=== PATIENT | male | born 1955 | race Caucasian/White ===

== ENCOUNTER 2020-05-26 15:44 | Inpatient (IN) | payer OTHER ==
[~2020-05-26] VITALS: Ht 185.4 cm; Wt 92.1 kg
[2020-05-26] MEDS ORDERED: QUET300T2 PO (16:00)
--- NOTE | 2020-05-26 16:15 | NUR ---
Patient has been medically cleared by Dr. Holman
--- NOTE | 2020-05-26 16:21 | NUR ---
Called Rudolph Jaime CHIEF TECHNICIAN [facility] to evaluate patient. No ETA given
--- NOTE | 2020-05-26 19:34 | NUR ---
Report given to SEAN Sutherland
[2020-05-26 20:00] VITALS: BP 133/85
[2020-05-26] MEDS ORDERED: MAG HYDROX/AL HYDROX/SIMETH 30 ML LIQUID UDC PO PRN (20:45)
[2020-05-26] MEDS ORDERED: LORAZEPAM 1 MG TABLET PO PRN (20:45)
[2020-05-26] MEDS ORDERED: BLOOD SUGAR DIAGNOSTIC 1 EACH STRIP VI ONE (20:45)
[2020-05-26] MEDS ORDERED: ACETAMINOPHEN 325 MG TABLET PO PRN (20:45)
[2020-05-26] MEDS ORDERED: MAGNESIUM HYDROXIDE 30 ML LIQUID UDC PO PRN (20:45)
[2020-05-26] MEDS: TEMAZEPAM 7.5 MG CAPSULE PO PRN (23:55)
--- NOTE | 2020-05-27 05:06 | NUR ---
Admit Note: 64 yr old male brought to [facility] from ER via wheel chair by ER staff. Pt admitted on a 5150 for Grave Disability under the care of Dr Harrell and Mary COTO. According to the 5150, Pt. was missing approx. 2 days then found by police in his his car confused, disorganized with no insight to current situation. Pt appears to reflect what is written on the Hold. Upon admission to the unit, VS stable, denies pain, and in no apparent physical distress. Pt. alert and oriented x3 however exhibits periods with confusion and declined physical assessment along with signing paperwork instead gave verbal consent. Patient Rights handbook and Advisement and Pt rights handbook given, unit rules explained, Pt verbalized understanding. Pt oriented to the unit, the phone, the restrooms, and his room. Q 15 minute rounding initiated for safety.
[2020-05-27 07:16] LABS: BILIRUBIN,TOTAL 1.6 mg/dL (0.2-1.0); CREATININE 0.9 mg/dL (0.6-1.3); POTASSIUM 3.3 mmol/L (3.5-5.1); TOTAL PROTEIN, SERUM 7.3 g/dL (6.4-8.2)
[2020-05-27 07:30] VITALS: BP 145/90
[2020-05-27 10:49] LABS: BASOPHILS # (AUTO) 0.1 K/uL (0.0-8.0); BASOPHILS % (AUTO) 0.8 % (0.0-2.0); EOSINOPHILS # (AUTO) 0.1 K/uL (0.0-0.7); EOSINOPHILS % (AUTO) 1.4 % (0.0-7.0); HEMATOCRIT 49.9 % (36.7-47.1); HEMOGLOBIN 17.1 g/dL (12.5-16.3); LYMPHOCYTES # (AUTO) 1.7 K/uL (20.0-40.0); LYMPHOCYTES % (AUTO) 19.2 % (20.5-51.5); MEAN CORPUSCULAR HEMOGLOBIN 30.2 uug (23.8-33.4); MEAN CORPUSCULAR HGB CONC 34 g/dL (32.5-36.3); MEAN CORPUSCULAR VOLUME 87.9 fL (73.0-96.2); MONOCYTES # (AUTO) 1.3 K/uL (2.0-10.0); MONOCYTES % (AUTO) 14.9 % (0.0-11.0); NEUTROPHILS # (AUTO) 5.7 K/uL (1.8-8.9); NEUTROPHILS % (AUTO) 63.7 % (38.5-71.5); PLATELET COUNT (AUTO) 269 K/uL (152-348); RED BLOOD CELL COUNT(AUTO) 5.67 MIL/uL (4.06-5.63); WHITE BLOOD COUNT (AUTO) 8.9 K/uL (3.6-10.2)
[2020-05-27] MEDS ORDERED: POTASSIUM CHLORIDE 20 MEQ TAB.PRT.SR PO ONE (12:00)
[2020-05-27 16:02] VITALS: BP 150/87
[2020-05-27] MEDS ORDERED: BLOOD SUGAR DIAGNOSTIC 1 EACH STRIP VI SCH (17:00)
[2020-05-27] MEDS: METFORMIN HCL 500 MG TABLET PO SCH (17:02)
--- NOTE | 2020-05-27 17:46 | NUR ---
patient is alert, oriented x3, with forgetfulness, no sob, resp even nonlabored,skin warm and dry to touch, noted with anxious mood, patient is disorganized, poor concentration, unable to formulate care for himself, sister bob called multiple times,patient denied suicidal thoughts, continue to monitor for safety per facility protocol
[2020-05-27 20:00] VITALS: BP 149/88
[2020-05-27] MEDS: TEMAZEPAM 7.5 MG CAPSULE PO PRN (21:22)
[2020-05-27] MEDS ORDERED: DIVALPROEX 250 MG TABLET.DR PO SCH (22:00)
[2020-05-27] MEDS: QUETIAPINE FUMARATE 200 MG TABLET PO SCH (22:18)
[2020-05-27] MEDS: TRAZODONE 50 MG TABLET PO SCH (22:19)
[2020-05-28] MEDS: BLOOD SUGAR DIAGNOSTIC 1 EACH STRIP VI SCH ×2 (06:26→16:19)
[2020-05-28 07:30] VITALS: BP 140/90
[2020-05-28] MEDS: METFORMIN HCL 500 MG TABLET PO SCH ×2 (08:00→17:08)
--- NOTE | 2020-05-28 08:00 | NUR ---
received patient AOx2-3, patient labile, guarded, patient recalls that the psychiatrist made rounds and ask about discharge planning, patient appears to be logical and coherent but some what paranoid with food, patient been refusing his meals, patient took morning medication, no distress at this time
[2020-05-28] MEDS: DIVALPROEX 250 MG TABLET.DR PO SCH ×3 (08:01→16:23)
[2020-05-28] MEDS: NEOMY/BACITRAC/POLYMI OINT 28.35 GM TUBE TOP SCH (12:09)
[2020-05-28 16:00] VITALS: BP 146/83
--- NOTE | 2020-05-28 18:05 | NUR ---
patient been paranoid , did not ate his meal the whole day, patient took medication, continuously to be manic, pressured speech, seen by Dr. Harrell, patient still refuse his meal tray, no distress at this time
[2020-05-28 20:00] VITALS: BP 136/75
[2020-05-28] MEDS: QUETIAPINE FUMARATE 200 MG TABLET PO SCH (20:32)
[2020-05-28] MEDS: TRAZODONE 50 MG TABLET PO SCH (20:32)
[2020-05-29] MEDS: BLOOD SUGAR DIAGNOSTIC 1 EACH STRIP VI SCH ×2 (06:40→16:17)
[2020-05-29 07:30] VITALS: BP 110/60
--- NOTE | 2020-05-29 08:00 | NUR ---
received patient AOx3 patient compliant with medication patient refused his breakfast, patient poor judgement , paranoid , patient denies SI and HI, will continue monitor
[2020-05-29] MEDS: DIVALPROEX 250 MG TABLET.DR PO SCH ×3 (08:03→16:00)
[2020-05-29] MEDS: METFORMIN HCL 500 MG TABLET PO SCH (08:03)
[2020-05-29] MEDS: NEOMY/BACITRAC/POLYMI OINT 28.35 GM TUBE TOP SCH (08:04)
--- NOTE | 2020-05-29 10:21 | NUR ---
ULICES Initial Discharge Plan: Patient resides at [id number] [place] [id number] ([phone]). Patient would like to return back home upon discharge. Patient's sister, Maryan ([phone]) and daughter, Bobo ([phone]) are both involved in the patient's care. ULICES will continue to work with patient, family, and MD to ensure a safe and proper discharge plan.
--- NOTE | 2020-05-29 10:23 | NUR ---
ULICES Family Contact: ULICES spoke with patient's sister, Maryan ([phone]) and daughter, Bobo ([phone]) whoa re both involved in the patient's care regarding patient. SW informed that patient is ready for discharge today and will be returning back to his home. Waiting for family to make arrangements for the patient to go back home today.
--- NOTE | 2020-05-29 10:52 | NUR ---
Social Work Firearms Report ([employer]): [employer] completed and submitted a [employer] firearms report for 5150 grave disability certification. A copy of report has been placed in patient chart.
--- NOTE | 2020-05-29 10:56 | NUR ---
UR Note: Auth: [id number] ULICES left a voicemail with [facility] Supervisor [employer] Abhay ([phone]) to inform patient's discharge plan today. Patient is authorized and clinical review is due 05/31/20. Addendum: 05/29/20 at 1116 by COLEEN BLANKENSHIP ULICES received a call back from [facility] and provided discharge summary information.
--- NOTE | 2020-05-29 13:08 | NUR ---
Discharge Note: Patient will be discharged today back home [address] [place] [address] ([phone]). Patients sister, Maryan ([phone]) will be providing transportation for the patient today back home today at 4PM. Patient is aware and agreeable with discharge plan. Patient presents with euthymic mood and congruent affect. Patient denies suicidal or homicidal ideation. Patient will be following up with his primary care physician Dr. Borges [address] [facility] [address], [place] [address] ([phone]) and has an appointment scheduled on June 02, 2020 at 1:20pm. Patient will be following up with his psychiatrist Dr. Johnson [address] [facility] [address], [place] [address] ([phone]) and has an appointment scheduled on May 30, 2020 at 9:00AM.
--- NOTE | 2020-05-29 14:29 | NUR ---
called in prescription to [facility] ,
[2020-05-29 15:28] VITALS: BP 126/61
--- NOTE | 2020-05-29 16:17 | NUR ---
patient was discharge to home, patient was picked up by his sister Maryan, patient sent home with home medication instruction and discharge instruction, patient in good mood, denies SI and HI, no distress
== END 2020-05-29 16:19 | disposition home or self-care (01) | DRG 885 ==
LOC: ER 15:44 → GPS 19:05
PROVIDERS: ADMIT Psychiatry & Neurology Psychiatry; ATTEND Internal Medicine
DX: F31.64 Bipolar disorder, current episode mixed, severe, with psychotic features (principal); K57.90 Diverticulosis of intestine, part unspecified, without perforation or abscess without bleeding; I10 Essential (primary) hypertension; K76.0 Fatty (change of) liver, not elsewhere classified; N28.1 Cyst of kidney, acquired; Z73.6 Limitation of activities due to disability; Z91.14 Patient's other noncompliance with medication regimen; R74.0 Nonspecific elevation of levels of transaminase and lactic acid dehydrogenase [LDH]
CPT/HCPCS: 36415; 85025; A4663; J3490